=== PATIENT | male | born 1950 | race Caucasian/White ===

== ENCOUNTER 2016-08-12 11:29 | Emergency (ER) | payer MEDICAID, MEDICARE ==
--- NOTE | 2016-08-12 12:25 | Emergency Department Record ---
History of Present Illness - General Chief complaint: Rash Stated complaint: blisters on his side Time Seen by Provider: 08/12/16 12:21 Mode of Arrival: Ambulatory - History of Present Illness Initial comments: rash started 5 days ago and shingles rash Onset/Timin -: Week(s) Location: Back, LLE, RLE Severity: Moderate Consistency: Constant Improves with: None Worsens with: None - Related Data Home Medications Medication Instructions Recorded Confirmed Last Taken Albuterol Sulfate [Proair Hfa] 1 - 2 puff IH .EVERY 4-6 HOURS PRN 04/29/1508/1208/12/16 Beclomethasone Dipropionate [Qvar] 1 puff IH BID 04/29/15 08/12/16 08/12/16 Clonazepam [Klonopin] 1 mg PO BID 04/29/15 08/12/16 08/12/16 Gabapentin [Neurontin] 300 mg PO TID 04/29/15 08/12/16 08/12/16 Hydrocodone/Acetaminophen [Americus 1 tab PO Q6H PRN 04/29/15 08/12/16 08/12/16 10mg/325mg] Metformin HCl [Metformin HCl ER] 500 mg PO BID 04/29/15 08/12/16 08/12/16 Nortriptyline HCl [Pamelor] 50 mg PO DAILY 04/29/15 08/12/16 08/12/16 Sumatriptan Succinate [Imitrex] 100 mg PO BID PRN 04/29/15 08/12/16 08/12/16 Verapamil HCl [Verapamil ER] 240 mg PO DAILY 04/29/15 08/12/16 08/12/16 Previous Rx's Medication Instructions Recorded Famciclovir 500 mg PO TID #21 tablet 08/12/16 Hydrocodone/Acetaminophen [Americus 1 each PO Q4HR #30 tablet 08/12/16 5-325 Tablet] Allergies Allergy/AdvReac Type Severity Reaction Status Date / Time No Known Drug Allergies Allergy Verified 08/12/16 11:36 Travel Screening - Travel/Exposure Within Last 30 Days Have you traveled within the last 30 days?: No - Travel/Exposure Within Last Year Have you traveled outside the [place] in the last year?: No - Additonal Travel Details Have you been exposed to anyone with a communicable illness?: No - Travel Symptoms Symptom Screening: None Review of Systems Reviewed: No additional complaints except as noted below Constitutional: Reports: As per HPI. Denies: Chills, Fever, Malaise, Night sweats, Weakness, Weight change Eyes: Reports: As per HPI. Denies: Eye discharge, Eye pain, Photophobia, Vision change ENT: Reports: As per HPI. Denies: Congestion, Dental pain, Ear pain, Epistaxis , Hearing loss, Throat pain Respiratory: Reports: As per HPI. Denies: Cough, Dyspnea, Hemoptysis, Stridor, Wheezes Cardiovascular: Reports: As per HPI. Denies: Arrhythmia, Chest pain, Dyspnea on exertion, Edema, Murmurs, Orthopnea, Palpitations, Paroxysmal nocturnal dyspnea, Rheumatic Fever, Syncope Endocrine: Reports: As per HPI. Denies: Fatigue, Heat or cold intolerance, Polydipsia, Polyuria Gastrointestinal: Reports: As per HPI. Denies: Abdominal pain, Constipation, Diarrhea, Hematemesis, Hematochezia, Melena, Nausea, Vomiting Genitourinary: Reports: As per HPI. Denies: Dysuria, Frequency, Hematuria, Incontinence, Retention, Testicular pain, Testicular mass, Urgency Musculoskeletal: Reports: As per HPI. Denies: Arthralgia, Back pain, Gout, Joint swelling, Myalgia, Neck pain Skin: Reports: As per HPI, Rash (shingles rash), Other. Denies: Bruising, Change in color, Change in hair/nails, Lesions, Pruritus Neurological: Reports: As per HPI. Denies: Abnormal gait, Confusion, Headache, Numbness, Paresthesias, Seizure, Tingling, Tremors, Vertigo, Weakness Psychiatric: Reports: As per HPI. Denies: Anxiety, Auditory hallucinations, Depression, Homicidal thoughts, Suicidal thoughts, Visual hallucinations Hematological/Lymphatic: Reports: As per HPI. Denies: Anemia, Blood Clots, Easy bleeding, Easy bruising, Swollen glands Past Medical History - SOCIAL HISTORY Smoking Status: Current every day smoker Alcohol Use: None Drug Use: None - RESPIRATORY Hx Respiratory Disorders: Yes Hx Asthma: Yes - CARDIOVASCULAR Hx Cardio Disorders: Yes Hx Hypertension: Yes Comment:: d/t leg and back pain - NEURO Hx Neuro Disorders: Yes Hx of Migraines: Yes Comment:: memory loss - GI Hx GI Disorders: Yes Hx Reflux: Yes Hx of Polyps: Yes - Hx Genitourinary Disorders: Yes Hx Renal Disease: Yes (polycystic kidneys) - ENDOCRINE Hx Endocrine Disorders: Yes - MUSCULOSKELETAL Hx Musculoskeletal Disorders: Yes Hx Arthritis: Yes - PSYCH Hx Psych Problems: Yes Hx Anxiety: Yes Hx Depression: Yes - HEMATOLOGY/ONCOLOGY Hx Hematology/Oncology Disorders: No Family Medical History Any Significant Family History?: No Physical Exam - General General Appearance: Alert, Oriented x3, Cooperative, No acute distress - Head Head exam: Normal inspection - Eye Eye exam: Normal appearance, PERRL Pupils: Normal accommodation - ENT ENT exam: Normal exam, Mucous membranes moist, Normal external ear exam, Normal orophraynx, TM's normal bilaterally Ear exam: Normal external inspection. negative: External canal tenderness Nasal Exam: Normal inspection. negative: Discharge, Sinus tenderness Mouth exam: Normal external inspection, Tongue normal Teeth exam: Normal inspection. negative: Dental caries Throat exam: Normal inspection. negative: Tonsillar erythema, Tonsillar exudate - Neck Neck exam: Normal inspection, Full ROM. negative: Tenderness - Respiratory Respiratory exam: Normal lung sounds bilaterally. negative: Respiratory distress - Cardiovascular Cardiovascular Exam: Regular rate, Normal rhythm, Normal heart sounds - GI/Abdominal GI/Abdominal exam: Soft, Normal bowel sounds. negative: Tenderness - Rectal Rectal exam: Deferred - exam: Deferred - Extremities Extremities exam: Normal inspection, Full ROM, Normal capillary refill. negative: Tenderness - Back Back exam: Reports: Normal inspection, Full ROM. Denies: Muscle spasm, Rash noted, Tenderness - Neurological Neurological exam: Alert, Normal gait, Oriented X3, Reflexes normal - Psychiatric Psychiatric exam: Normal affect, Normal mood - Skin Skin exam: Other (shingles rash on the right leg some by hip and some by ankle and skin is painful) Course Vital Signs 08/12/16 11:44 Temperature 98.7 F Pulse Rate 110 H Respiratory 20 Rate Blood Pressure 173/129 Pulse Ox 95 Disposition Clinical Impression: Zoster Qualifiers: Herpes zoster complications: without complications Qualified Code(s): B02.9 - Zoster without complications Disposition: Home, Self-Care Condition: (1) Good Instructions: Shingles (ED) Additional Instructions: follow up with family in one week Prescriptions: Hydrocodone/Acetaminophen [Americus 5-325 Tablet] 1 each PO Q4HR #30 tablet Famciclovir 500 mg PO TID #21 tablet Forms: Patient Portal Access Time of Disposition: 12:44
== END 2016-08-12 12:53 | disposition home or self-care (01) ==
LOC: ER 11:29
DX: B02.9 Zoster without complications (principal)
CPT/HCPCS: 99282

== ENCOUNTER 2018-06-05 17:01 | Emergency (ER) | payer MEDICARE, MEDICAID ==
--- NOTE | 2018-06-05 17:19 | Emergency Department Record ---
History of Present Illness - General Chief complaint: Pain Stated complaint: prostrate pain Time Seen by Provider: 06/05/18 17:04 Source: Patient Mode of Arrival: Ambulatory Limitations: No limitations - History of Present Illness Initial comments: 67 yo male presents with a concern about a recurrent prostate infection. For several weeks he has been having symptoms that are very similar to his prior prostates infections. He has an ache in the pelvic area, a fatigue, muscle aches and a feeling of being run down. No nausea, vomiting, diarrhea. He is able to urinate freely. The onset however is very similar to his prior prostatitis. He saw Dr Bah in the past for prostatitis. No recent or prior surgery. His prior episodes resolved with oral antibiotics. No known BPH or Prostates cancer. No abdominal pain. MD Complaint: Other -: Week(s) Location: Bilateral History of Same: Yes -: Yes Arthralgia, Yes Myalgia Radiation: Distal Quality: Aching Consistency: Constant Improves with: Nothing Worsens with: Nothing Associated Symptoms: Denies other symptoms - Related Data Previous Rx's Medication Instructions Recorded Sulfamethoxazole/Trimethoprim 1 each PO BID #14 tablet 06/05/18 [Bactrim Ds Tablet] Allergies Allergy/AdvReac Type Severity Reaction Status Date / Time No Known Drug Allergies Allergy Verified 06/05/18 17:16 Review of Systems Constitutional: Reports: Malaise, Weakness. Denies: Chills, Fever Eyes: Denies: Eye discharge, Eye pain, Photophobia, Vision change ENT: Denies: Congestion, Throat pain Respiratory: Denies: Cough, Dyspnea Cardiovascular: Denies: Chest pain, Palpitations, Syncope Endocrine: Reports: Fatigue. Denies: Polydipsia, Polyuria Gastrointestinal: Denies: Abdominal pain, Constipation, Diarrhea, Hematemesis, Hematochezia, Nausea, Vomiting Genitourinary: Denies: Discharge, Dysuria, Frequency, Hematuria Musculoskeletal: Reports: Back pain. Denies: Arthralgia, Myalgia Skin: Denies: Bruising, Change in color, Rash Neurological: Denies: Numbness, Weakness Psychiatric: Denies: Anxiety Hematological/Lymphatic: Denies: Blood Clots, Easy bleeding, Easy bruising Past Medical History - SOCIAL HISTORY Smoking Status: Current every day smoker Drug Use: None - RESPIRATORY Hx Respiratory Disorders: Yes Hx Asthma: Yes - CARDIOVASCULAR Hx Cardio Disorders: Yes Hx Hypertension: Yes Comment:: d/t leg and back pain - NEURO Hx Neuro Disorders: Yes Hx of Migraines: Yes Comment:: memory loss - GI Hx GI Disorders: Yes Hx Reflux: Yes Hx of Polyps: Yes - Hx Genitourinary Disorders: Yes Hx Renal Disease: Yes (polycystic kidneys) - ENDOCRINE Hx Endocrine Disorders: Yes - MUSCULOSKELETAL Hx Musculoskeletal Disorders: Yes Hx Arthritis: Yes - PSYCH Hx Psych Problems: Yes Hx Anxiety: Yes Hx Depression: Yes - HEMATOLOGY/ONCOLOGY Hx Hematology/Oncology Disorders: No Physical Exam - General General Appearance: Alert, Oriented x3, Cooperative, No acute distress Limitations: No limitations - Head Head exam: Atraumatic, Normal inspection - Eye Eye exam: Normal appearance, PERRL. negative: Conjunctival injection, Scleral icterus - ENT ENT exam: Normal exam, Mucous membranes moist Ear exam: Normal external inspection Nasal Exam: Normal inspection Mouth exam: Normal external inspection - Neck Neck exam: Normal inspection - Respiratory Respiratory exam: Normal lung sounds bilaterally. negative: Respiratory distress - Cardiovascular Cardiovascular Exam: Regular rate, Normal rhythm, Normal heart sounds - GI/Abdominal GI/Abdominal exam: Soft. negative: Distended, Guarding, Tenderness - Rectal Rectal exam: Normal prostate (normal size but somewhat tender). negative: Black stool - Extremities Extremities exam: Normal inspection - Back Back exam: Denies: CVA tenderness (R), CVA tenderness (L) - Neurological Neurological exam: Alert, Oriented X3 - Psychiatric Psychiatric exam: Normal affect, Normal mood - Skin Skin exam: Dry, Intact, Normal color, Warm Course - Reevaluation(s) Reevaluation #1: The labs were reviewed No acute changes on the CBC or CMP The C-RP is 0.52 The UA was negative for infection with blood noted 06/05/18 18:02 Medical Decision Making - Lab Data Result diagrams: 06/05/18 17:20 06/05/18 17:20 Disposition Disposition: Discharge Disposition: Home, Self-Care Condition: (1) Good Instructions: Prostatitis (ED) Additional Instructions: Call your doctor for the next available follow up appointment Return to the ER for a recheck if worse, any new concerns or questions Take the prescriptions provided as directed Review this ER visit and the tests performed with your family doctor Prescriptions: Sulfamethoxazole/Trimethoprim [Bactrim Ds Tablet] 1 each PO BID #14 tablet Referrals: SALLY JOHNSON M.D. [MEDICAL DOCTOR] - Forms: Patient Portal Access Time of Disposition: 18:07 Quality - Quality Measures Quality Measures: N/A - Blood Pressure Screening Does Patient Have Any of the Following: No Blood Pressure Classification: Hypertensive Reading Systolic Measurement: 201 Diastolic Measurement: 109 Screening for High Blood Pressure: < Pre-Hypertensive BP, F/U Documented > [ [id number]] Pre-Hypertensive Follow-up Interventions: Referral to alternative/primary care provider.
[2018-06-05 17:32] LABS: HEMOGLOBIN 16.7 gm/dl (14.0-18.0); MEAN CELL VOLUME 87.8 fl (81-97); MEAN CORPUSCULAR HEMOGLOBIN 28.2 pg (27-33); MEAN CORPUSCULAR HGB CONC 32.1 g/dl (32-36); MEAN PLATELET VOLUME 9.1 fl (7.4-10.4); PLATELET COUNT 257 K/uL (130-400); RED BLOOD COUNT 5.92 M/uL (4.40-5.70); RED CELL DISTRIBUTION WIDTH 17.3 % (11.5-14.5); WHITE BLOOD COUNT W/O DIFF 10.2 K/uL (4.2-12.2)
[2018-06-05 17:33] LABS: URINE APPEARANCE CLEAR; URINE BILIRUBIN NEGATIVE (NEGATIVE); URINE BLOOD MODERATE (NEGATIVE); URINE COLOR YELLOW; URINE GLUCOSE (UA) NEGATIVE (NEGATIVE); URINE KETONE NEGATIVE (NEGATIVE); URINE LEUKOCYTE ESTERASE NEGATIVE (NEGATIVE); URINE NITRITE NEGATIVE (NEGATIVE); URINE UROBILINOGEN 0.2 E.U./dL (0.20 - 1.00)
[2018-06-05 17:44] LABS: BILIRUBIN,TOTAL 0.2 mg/dL (0.2-1.0); CREATININE 1.5 mg/dL (0.7-1.2); TOTAL PROTEIN 7.5 g/dL (6.6-8.7)
[2018-06-05 17:49] LABS: ALB/GLOB RATIO 1.4 (1.1-1.8); ALBUMIN 4.4 g/dL (4.0-5.0); C-REACTIVE PROTEIN 0.52 mg/dL (<0.5)
[2018-06-05 17:54] LABS: URINE WBC 0 - 2 (0-2/hpf)
[2018-06-05] MEDS ORDERED: TMP/SMZ 160MG/800MG TAB PO ONE (18:07)
== END 2018-06-05 18:27 | disposition home or self-care (01) ==
LOC: ER 17:01
DX: R53.1 Weakness (principal); R10.2 Pelvic and perineal pain; I10 Essential (primary) hypertension; F17.210 Nicotine dependence, cigarettes, uncomplicated
CPT/HCPCS: 99283 ×2; 86140; 80053; 81001; 85027; J3490